=== PATIENT | female | born 1960 | race Caucasian/White ===

== ENCOUNTER → 2020-06-17 10:48 | Outpatient (REF) | payer BC, SELFPAY ==
--- NOTE | 2020-06-17 | NM_ITS ---
EXAMINATION: THREE PHASE BONE SCAN CLINICAL INFORMATION: Left heel pain for 3 months. Patient states back surgery years ago.. COMPARISON: No previous bone scan is available for comparison. The report of a left foot radiographs dated 04/05/2020 is available, but the images from that study are not available for comparison.. TECHNIQUE: Initial rapid sequence images were obtained over the distal lower extremities in the anterior and posterior projections during the bolus injection of 28.0 mCi Tc-99m MDP. Static images of the whole-body with multiple views of the feet were then obtained 2.5 hours post injection. FINDINGS: Initial rapid sequence images show bilaterally symmetrical flow to the distal lower extremities with no foci of abnormally increased flow present at any site. Blood pool images obtained immediately following the flow study show no significant foci of increased activity at any site. The delayed static images show: In the head, no significant abnormalities are present. In the thoracic cage and upper extremities, there is mildly increased activity in the radial side of both hands, at the first carpal metacarpal joints bilaterally. There is minimally increased activity in the right acromioclavicular and sternoclavicular joints. In the spine, no significant abnormalities are present. In the pelvis, no significant abnormalities are present. In the lower extremities, there is a small focus of mildly increased activity laterally in the mid right foot, probably at the base of the right fourth metatarsal bone. There is a very mild focus of increased activity present in the posterior plantar surface of the left calcaneus. There is also minimally increased activity just barely perceptible in the region of the left first metatarsal phalangeal joint. No other definite bony abnormalities are noted. The urinary bladder and faint visualization of both kidneys are noted. NM/NM bone 3 phase IMPRESSION: 1. Very minimal abnormality in the posterior plantar surface of the left calcaneus is present. This is most consistent with a mild plantar fasciitis. There is no evidence of a recent fracture in the left calcaneus or elsewhere in the left foot. 2. Mild abnormality in the base of the right fourth metatarsal bone is nonspecific but is likely degenerative in etiology or due to continued bone remodeling at a previous traumatic or stress fracture. 3. A few additional minimal nonspecific abnormalities are noted as described above and these are all likely arthritic or traumatic in etiology. None of these abnormalities is strongly suspicious for metastatic disease.
== END ==
LOC: HO.NUCMED 10:48
PROVIDERS: PCP Internal Medicine; Visit Provider Podiatrist
DX: M84.375A Stress fracture, left foot, initial encounter for fracture (principal)
CPT/HCPCS: 78315; A9503

== ENCOUNTER 2021-01-14 08:54 | Outpatient (REF) | payer BC, SELFPAY ==
--- NOTE | ~2021-01-14 | MM_ITS ---
EXAMINATION: MM SCREENING DIGITAL BREAST TOMOSYNTHESIS, BILATERAL CLINICAL INFORMATION: Screening. Asymptomatic. The lifetime risk of breast cancer based on the Tyrer-Cuzick Model is 3.1%. COMPARISON: Mammography: January 09, 2020 and studies dating back to July 25, 2013 TECHNIQUE: Digital breast tomosynthesis is performed in both the craniocaudal and mediolateral oblique views along with computer-aided detection (CAD). Synthesized 2D images are generated from the tomosynthesis. FINDINGS: There are scattered areas of fibroglandular density (ACR BI-RADS breast composition Category b). There are no significant masses, abnormal calcifications, or other abnormalities. MM/MM tomosynthesis screening BI IMPRESSION: There are no significant changes from prior study. ASSESSMENT: BI-RADS 1: Negative RECOMMENDATION: Routine annual mammography screening. This patient's information was entered into a reminder system with a target due date for their next mammogram.
== END 2021-01-14 08:55 | disposition home or self-care (01) ==
LOC: HO.MAMMO 08:54
PROVIDERS: PCP Internal Medicine; Visit Provider Internal Medicine
DX: Z12.31 Encounter for screening mammogram for malignant neoplasm of breast (principal)
CPT/HCPCS: 77063; 77067

== ENCOUNTER 2021-02-05 11:23 | Outpatient (REF) | payer BC, SELFPAY ==
[2021-02-05 13:17] LABS: MANUAL DIFF FLAG NO
[2021-02-05 13:20] LABS: Basophils Absolute Auto 0.1 X10*3/uL (0.0-0.2); Basophils Percent Auto 0.6 % (0-2); Eosinophils Percent Auto 0.5 % (0-4); Hematocrit 41.3 % (37-47); Hemoglobin 13.8 g/dl (12.0-16.0); Imm Gran Abs Auto 0.03 X10*3/uL (0.00-0.03); Imm Gran Pct Auto 0.4 % (0.0-0.4); Lymphocytes Absolute Auto 2.8 X10*3/uL (1.2-4.9); Lymphocytes Percent Auto 32.9 % (20-40); Mean Corpuscular HGB Conc 33.4 g/dl (31.0-35.0); Mean Corpuscular Hemoglobin 28.9 pg (27.0-33.0); Mean Corpuscular Volume 86.4 fL (80-98); Mean Platelet Volume 10.5 fL (9.4-12.3); Monocytes Absolute Auto 0.6 X10*3/uL (0.1-1.2); Monocytes Percent Auto 6.8 % (2-11); Neutrophils Percent Auto 58.8 % (45-73); Platelet Count 399 X10*3/uL (160-400); Red Blood Count 4.78 X10*6/uL (4.20-5.50); Red Cell Distribution Width 12.6 % (11.0-16.0); White Blood Count 8.4 X10*3/uL (4.8-10.8)
[2021-02-05 14:07] LABS: Vitamin D 25-OH Total 37.6 ng/mL (>30)
[2021-02-05 14:21] LABS: Alanine Aminotransferase 25 U/L (0-31); Albumin Level 5.1 g/dL (3.5-5.0); Alkaline Phosphatase 132 U/L (39-117); Anion Gap 16 (12-20); Aspartate Amino Transferase 21 U/L (5-31); Bilirubin Total 0.3 mg/dL (0.0-1.0); Blood Urea Nitrogen 12 mg/dL (9-16); Carbon Dioxide 26 mmol/L (22-29); Chloride 104 mmol/L (96-108); Cholesterol 256 mg/dL; Estimated Glomerular Filt Rate > 60; Glucose Fasting 98 mg/dL (60-99); HDL Cholesterol 93 mg/dL; LDL Cholesterol Calculated 153 mg/dl; Sodium 141 mmol/L (135-145); Triglycerides 54 mg/dL
== END 2021-02-05 11:24 | disposition home or self-care (01) ==
LOC: HO.10HDL 11:23
PROVIDERS: PCP Internal Medicine; Visit Provider Internal Medicine
DX: I10 Essential (primary) hypertension (principal); K21.9 Gastro-esophageal reflux disease without esophagitis; E78.00 Pure hypercholesterolemia, unspecified; M19.90 Unspecified osteoarthritis, unspecified site; M81.0 Age-related osteoporosis without current pathological fracture
CPT/HCPCS: 36415; 80053; 80061; 82306; 85025